=== PATIENT | male | born 2000 | race Caucasian/White ===

== ENCOUNTER 2019-11-15 12:00 | Outpatient (CLI) | payer BC, SELFPAY | END 2019-11-15 12:01 | disposition home or self-care (01) | LOC: SLEEP 11-16 11:35 | PROVIDERS: PCP Family Medicine; Visit Provider Nurse Practitioner Family | DX: G47.33 Obstructive sleep apnea (adult) (pediatric) (principal) | CPT/HCPCS: G0399 ==

== ENCOUNTER 2019-12-10 20:00 | Outpatient (CLI) | payer BC, SELFPAY | END 2019-12-10 20:01 | disposition home or self-care (01) | LOC: SLEEP 12-11 08:46 | PROVIDERS: PCP Family Medicine; Visit Provider Nurse Practitioner Family | DX: G47.33 Obstructive sleep apnea (adult) (pediatric) (principal); E66.01 Morbid (severe) obesity due to excess calories; R06.83 Snoring; G47.9 Sleep disorder, unspecified | CPT/HCPCS: 95810; 95811 ==

== ENCOUNTER → 2022-04-16 10:20 | Outpatient (BNVA) | payer SELFPAY | PROVIDERS: PCP Family Medicine; Visit Provider Nurse Practitioner Family | DX: E66.01 Morbid (severe) obesity due to excess calories (principal); F41.9 Anxiety disorder, unspecified; F32.9 Major depressive disorder, single episode, unspecified; J30.2 Other seasonal allergic rhinitis; G47.33 Obstructive sleep apnea (adult) (pediatric); Z99.89 Dependence on other enabling machines and devices; Z76.89 Persons encountering health services in other specified circumstances | CPT/HCPCS: 80053; 80061; 84443 ==

== ENCOUNTER → 2022-12-23 12:15 | Outpatient (BNVA) | payer OTHER, SELFPAY | PROVIDERS: PCP Family Medicine; Visit Provider Nurse Practitioner Family | DX: E78.2 Mixed hyperlipidemia (principal); F32.9 Major depressive disorder, single episode, unspecified; F41.9 Anxiety disorder, unspecified; E66.01 Morbid (severe) obesity due to excess calories | CPT/HCPCS: 80053; 80061 ==